=== PATIENT | male | born 1995 | race Caucasian/White ===

== ENCOUNTER 2016-07-09 16:25 | Emergency (ER) | payer BC ==
[2016-07-09] MEDS ORDERED: Ketorolac 30 MG/ML SDV IM ONE (17:30)
[2016-07-09] MEDS ORDERED: Ketorolac 30 MG/ML SDV ONE ×2 (17:30→17:51)
[2016-07-09] MEDS ORDERED: Cyclobenzaprine 10 MG Tab PO ONE (17:30)
[2016-07-09] MEDS ORDERED: Cyclobenzaprine 10 MG Tab ONE (18:19)
--- NOTE | 2016-07-09 20:22 | EDM.PDOC ---
ED UPPER BACK/NECK PAIN/INJURY - General Chief Complaint: Neck Problem Stated Complaint: STIFF NECK Time Seen by Provider: 07/09/16 16:35 Source of Information: Reports: Patient History Limitations: Reports: No limitations - History of Present Illness INITIAL COMMENTS - FREE TEXT/NARRATIVE: 21-year-old college student at [employer] injured his neck today playing basketball. Patient feels a strain and discomfort on the left side of his neck radiating into his trapezius. He notices stiffness in his neck. He believes he may have been struck while playing basketball. Denies head trauma, loss of consciousness. He denies arm pain numbness or tingling. He rates his pain at a 2 or 3. When he experiences spasms it goes up to an 8 or 9. He denies any prior history of neck problems. Symptom Onset Date: 07/09/16 Timing/Duration: Reports: Minutes: Location: Reports: paraspinal Quality: Reports: Sharp Severity: moderate Place of Occurrence: school Improves with: Reports: Rest Worsens with: Reports: Movement Context: Reports: sports injury Associated Symptoms: Reports: Denies symptoms ED ROS GENERAL - Review of Systems Review Of Systems: ROS reveals no pertinent complaints other than HPI. ED EXAM, UPPER BACK/NECK PAIN - Physical Exam Exam: See Below Exam Limited By: No limitations General Appearance: alert, WD/WN, no apparent distress Eye Exam: bilateral eye: EOMI, PERRL Ears Exam: normal external exam, normal canal, hearing grossly normal, normal TMs Nose Exam: normal inspection, no blood Throat/Mouth Exam: Normal inspection, Normal lips, Normal teeth, Normal gums, Normal oropharynx, Normal voice, No airway compromise Head Exam: atraumatic, normocephalic. No: scalp tenderness, facial abrasions, facial ecchymosis, facial tenderness, sinus tenderness Neck Exam: limited range of motion (rotation to his left is 45 to the right rotation is 70), muscle spasm, painful range of motion (with rotation to the left), paraspinous muscle tender (left side), stiff neck, tender lateral (is on the paraspinals). No: spinous processes tender (no spinous process tenderness to palpation), tender midline Nexus Criteria: No: posterior, midline cervical tenderness, evidence of intoxication, altered level of consciousness, focal neurological deficit, painful distracting injuries Back Exam: normal inspection, full range of motion Extremities: normal inspection, normal range of motion, non-tender, no pedal edema, normal capillary refill, other (motor strength are 5 out of 5 throughout both upper extremities, has normal range of motion passively and actively of both shoulders, rotator cuff strength is intact bilaterally) 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, no motor/sensory deficits, alert, normal mood/affect, oriented x 3 DTR: 2+: bicep (R), bicep (L), tricep (R), tricep (L) Psychiatric: normal affect, normal mood Skin Exam: Normal color, Warm/dry Lymphatic: no adenopathy Course - Orders/Labs/Meds Orders: Active Orders 24 hr Category Date Time Status Cervical Spine 2V or 3V [CR] Stat Exams 07/09/16 17:28 Ordered Meds: Medications Discontinued Medications Generic Name Dose Route Start Last Admin Trade Name Freq PRN Reason Stop Dose Admin Cyclobenzaprine HCl 10 mg 07/09/16 17:30 07/09/16 18:03 Flexeril PO 07/09/16 17:31 10 mg ONETIME ONE Administration Cyclobenzaprine HCl Confirm 07/09/16 18:19 Flexeril Administered 07/09/16 18:20 Dose 30 mg .ROUTE .STK-MED ONE Ketorolac Tromethamine 30 mg 07/09/16 17:30 Toradol .ROUTE 07/09/16 17:31 .STK-MED ONE Ketorolac Tromethamine Confirm 07/09/16 17:51 07/09/16 18:03 Toradol Administered 07/09/16 17:52 30 mg Dose Administration 30 mg .ROUTE .STK-MED ONE - Radiology Interpretation Free Text/Narrative:: Cervical spine 2 views No acute fracture, subluxation or prevertebral soft tissue swelling. Disc are maintained. No degenerative changes Impression No acute process Departure - Departure Time of Disposition: 16:35 Disposition: Home, Self-Care 01 Condition: good Clinical Impression: Cervical muscle strain Qualifiers: Encounter type: initial encounter Qualified Code(s): S16.1XXA - Strain of muscle, fascia and tendon at neck level, initial encounter Instructions: Cervical Strain and Sprain With Rehab-SportsMed Referrals: Edenilson Blair PA-C [Primary Care Provider] - Additional Instructions: 1. Ibuprofen 800 mg 3 times a day with food for pain. Stop if this causes any stomach upset. 2. Flexeril 10 mg one by mouth twice a day for neck spasm. 3. followup with your primary care in a week to 10 days if neck is still painful. May benefit from a course of physical therapy and modalities. - My Orders Last 24 Hours: My Active Orders 07/09/16 17:28 Cervical Spine 2V or 3V [CR] Stat - Assessment/Plan Last 24 Hours: My Active Orders 07/09/16 17:28 Cervical Spine 2V or 3V [CR] Stat Assessment:: Cervical muscle strain Plan: 1. Ibuprofen 800 mg 3 times a day with food. Patient is to stop it this causes stomach upset 2. Flexeril 10 mg one by mouth 3 times a day for muscle spasms. 3. Followup with her primary care in 10-14 days if her neck pain is not improving would likely recommend physical therapy for some ultrasound and modalities and stretching exercises.
[2016-07-09 21:34] VITALS: BP 134/83
== END 2016-07-09 18:35 | disposition home or self-care (01) ==
LOC: KA.ED 16:25
DX: S16.1XXA Strain of muscle, fascia and tendon at neck level, initial encounter (principal); X58.XXXA Exposure to other specified factors, initial encounter; Y93.67 Activity, basketball
CPT/HCPCS: 72040; 96372; 99283; A9270; J1885